=== PATIENT | female | born 1985 | race Caucasian/White ===

== ENCOUNTER 2017-07-27 22:18 | Observation (INO) | payer BC ==
[~2017-07-27 22:18] MED LIST: ISOVUE-370 76%-LOCM 1 ML ONE
[2017-07-27 23:12] LABS: #Basophils 0.1 thou/uL (0.0-0.2); #Lymphocytes 2.3 thou/uL (1.20-3.40); #Monocytes 0.6 thou/uL (0.11-0.59); #Neutrophils 2.7 thou/uL (1.40-6.50); %Basophils 1.4 % (0.0-1.0); %Eosinophils 0.6 % (0.0-10.0); %Lymphocytes 40.7 % (21.0-51.0); %Monocytes 10.1 % (0.0-10.0); Hematocrit 36.8 % (36.0-47.0); Mean Platelet Volume 7.2 fL (7.4-10.4); Red Blood Cell (RBC) Count 3.73 mill/uL (4.20-5.40); White Blood Cell (WBC) Count 5.7 thou/uL (4.8-10.8)
[2017-07-27 23:31] LABS: Bilirubin Negative (Negative); Blood, Urine Negative (Negative); Glucose, Urine (Dipstick) Negative (Negative); Ketone, Urine Negative (Negative); Nitrite Negative (Negative); Protein, Urine (Dipstick) Negative (Neg-Trace); Urobilinogen 0.2 mg/dL (0.2-1.0)
[2017-07-27 23:34] LABS: ALT (SGPT) 17 U/L (8-55); AST (SGOT) 28 U/L (5-34); Alkaline Phosphatase 47 U/L (40-150); Anion Gap 12 mmol/L (10-20); BUN (Urea Nitrogen) 6 mg/dL (7.0-18.7); Bilirubin, Total 0.3 mg/dL (0.2-1.2); Calc. Creatinine Clearance 0 mL/min (70-130); Carbon Dioxide 21 mmol/L (22-29); Chloride 107 mmol/L (98-107); Estimated GFR-MDRD 85; Globulin 3.1 g/dL (2.4-3.5); Lipase 103 U/L (8-78); Protein, Total 7.3 g/dL (6.0-8.3)
[2017-07-27] MEDS ORDERED: Morphine 4 MG/ML VIAL ONE (23:42)
[2017-07-27] MEDS ORDERED: Ondansetron HCl/PF 4 MG/2 ML Vial ONE (23:42)
[2017-07-28] MEDS ORDERED: Morphine 4 MG/ML VIAL ONE (00:25)
[2017-07-28] MEDS ORDERED: Mag-Al 1200 mg/1200 mg/30 ML UDCUP ONE (01:11)
[2017-07-28] MEDS ORDERED: Lidocaine Viscous Sol 2% 15 ml UD Cup ONE (01:11)
[2017-07-28] MEDS ORDERED: HYDROcodone/Acetaminophen 5/325 mg Tablet ONE (01:39)
--- NOTE | 2017-07-28 02:35 | PDOC.EVN ---
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 I have suggested she be sent to 3rd floor gynecology for overnight evaluation for "r/o torsion". As she is clinically stable and in no acute distress, I will evaluate her on arrival to the floor. Assessment: 1. Pelvic pain 2. R/O torsion (although venous flow noted on sono) Plan: 1. will observe for now 2. Await formal sono report 3. Consider repeat sono in AM prn
--- NOTE | 2017-07-28 04:05 | PDOC.EVN ---
Event Note - Event Note Event Note: 07/28/2017 @ 0400: Patient still in ER. Poornima, the nurse practitioner, just notified me that the official sono read shows right hydrosalpinx. I have ordered 1 gram rosphin and 1 gram Zmax IV in ED. Awaiting floor arrival.
[2017-07-28] MEDS ORDERED: Ondansetron HCl/PF 4 MG/2 ML Vial ONE (04:15)
[2017-07-28] MEDS ORDERED: Azithromycin 250 MG TAB ONE (04:26)
[2017-07-28] MEDS ORDERED: Ondansetron ODT 4 MG TAB SL PRN (05:05)
[2017-07-28] MEDS ORDERED: Sodium Chloride 0.9% 1,000 ML IV SCH (05:05)
[2017-07-28] MEDS ORDERED: Ondansetron HCl/PF 4 MG/2 ML Vial IVP PRN (05:05)
[2017-07-28] MEDS ORDERED: Acetaminophen/Codeine 30-300mg Tablet PO PRN (05:06)
[2017-07-28] MEDS ORDERED: Ibuprofen 800 MG TAB PO PRN (05:08)
--- NOTE | 2017-07-28 05:36 | PDOC.EVN ---
Event Note - Event Note Event Note: 07/28/17 @ 0530: Room 335. HISTORY AND PHYSICAL CC: pelvic pain HPI: 31 yo with known HX of pelvic pain and known HX of hydrosalpinx on right now arrives to 3rd floor for observation. She has a HX of adenomyosis and had a laparoscopic hysterectomy at the [facility] in the past. She also has a CS HX from 2006. In ED, sono and CT done with official reports pending. Venous flow seen to the right ovary, right hydrosalpix noted. Allergies: NONE meds: Wellbutrin, Concerta, Topamax for migrain, Loestrin (for "ovarian cysts") PHYSICAL: 141/72, pulse 50, temp 97.9 NAD Patient sitting up in bed Non-surgical abdomen Pelvic: deferred Lab: CBC with WBC 5, HCT and PLATLETS normal GC/Chl pending. Meds given in ER: Rocephin/Zmax prior to prior HX pof hydrosalpix being known ( chronic problem) Assessment: 31 yo with prior hysterectomy, known hydrosalpinx, with pelvic pain (chronic). Right ovary with venous flow. Plan: 1. Continue observation for now 2. Anticipate later discharge this AM as no evidence acute abdomen, and chronic HX of pain 3. Clears for now.
[2017-07-28 07:23] VITALS: BMI 26.5
--- NOTE | 2017-07-28 09:51 | CT ---
PRELIMINARY REPORT/[facility]/EMERGENCY AFTER HOURS PROCEDURE: EXAM: CT Abdomen and Pelvis With Intravenous Contrast EXAM DATE/TIME: 07/28/2017 12:32 AM CLINICAL HISTORY: 31 years old, female; Pain; Abdominal pain; Generalized; Patient HX: Abd pain TECHNIQUE: Axial computed tomography images of the abdomen and pelvis with intravenous contrast. Coronal reformatted images were created and reviewed. CONTRAST: 100 mL of ISOVUE administered intravenously. COMPARISON: No relevant prior studies available. FINDINGS: Lower thorax: No acute findings. ABDOMEN: Liver: Unremarkable. No mass. Gallbladder and bile ducts: Unremarkable. No calcified stones. No ductal dilation. Pancreas: Unremarkable. No mass. No ductal dilation. Spleen: Unremarkable. No splenomegaly. Adrenals: Unremarkable. No mass. Kidneys and ureters: There is a simple cyst in the right kidney. No hydronephrosis. Stomach and bowel: No mass or wall thickening. No obstruction. Appendix: A normal appendix is identified. PELVIS: Bladder: Unremarkable. No mass. Reproductive: The patient is status post hysterectomy. No adenexal masses are seen. ABDOMEN and PELVIS: Intraperitoneal space: There is a moderate amount of free fluid present. No free air. Bones/joints: No acute fracture. No dislocation. Soft tissues: Unremarkable. Vasculature: Unremarkable. No abdominal aortic aneurysm. Lymph nodes: Unremarkable. No enlarged lymph nodes. IMPRESSION: No acute findings. Thank you for allowing us to participate in the care of your patient. Dictated and Authenticated by: Angela Guardado MD 07/28/2017 12:46 AM Central Time ([place] & [place]) FINAL REPORT CT ABDOMEN AND PELVIS WITH CONTRAST: There is free fluid in the deep pelvis in the region of cul-de-sac. Appendix is normal. No other ab normality or acute process seen. I am in agreement with the preliminary report. POS: [facility]
--- NOTE | 2017-07-28 09:53 | ULT ---
PRELIMINARY REPORT/[facility]/EMERGENCY AFTER HOURS PROCEDURE: EXAM: US Pelvis Complete, Transabdominal US Pelvis, Transvaginal US Duplex Arterial/Venous of the Pelvis, Complete CLINICAL HISTORY: 31 years old, female; Pain and signs and symptoms; Constipation and other: N/v; Slow transit; Pelvic pain; Prior surgery; Surgery date: 6+ months; Surgery type: Partial hysterectomy, pt still has both o varies TECHNIQUE: Real-time transabdominal and transvaginal pelvic ultrasound (complete) with image documentation. Transvaginal imaging was used for better evaluation of the endometrium and adnexa. Real-time duplex ultrasound scan of the arterial and venous flow of the pelvis with color Doppler mendez w and spectral waveform analysis was also performed for evaluation of pelvic and ovarian blood flow a nd to rule out torsion. COMPARISON: No relevant prior studies available. FINDINGS: Uterus/cervix: Surgically absent. Right ovary: Enlarged hyperechoic right ovary with peripheral small probable follicles. There is veno us flow in the right ovary, however no arterial flow identified. Left ovary: No acute findings. No mass. Normal blood flow. No evidence of torsion. Dominant follicle. Free fluid: Moderate. Other findings: Dilated tubular/cystic anechoic structure adjacent and inferior to the right ovary th at may represent hydrosalpinx. IMPRESSION: Enlarged hyperechoic right ovary and absent arterial flow; recommend clinical correlation for right o varian torsion and gynecology consult. Moderate free fluid. Dilated tubular/cystic structure that may represent hydrosalpinx. THIS REPORT CONTAINS FINDINGS THAT MAY BE CRITICAL TO PATIENT CARE. The findings were verbally communicated via telephone conference with Poornima Gudino at 2:34 AM [employer] on 07/28/2017. The findings were acknowledged and understood. Thank you for allowing us to participate in the care of your patient. Dictated and Authenticated by: Raghavendra Cortez MD 07/28/2017 2:46 AM Central Time ([place] & [place]) FINAL REPORT PELVIC ULTRASOUND: Transabdominal and endovaginal ultrasound performed. Color Doppler with spectral analysis performed. The patient is post hysterectomy. FINDINGS/IMPRESSION: The right ovary is mildly enlarged and color Doppler with spectral analysis shows no significant clau rial flow. Venous flow is identified. Ovarian torsion is not excluded. Moderate amount of free flu id. A dilated tubular structure may represent hydrosalpinx. I am in agreement with the preliminary report. POS: [facility]
[2017-07-28 11:44] VITALS: BP 143/85; TEMP 98.2
--- NOTE | 2017-08-30 11:50 | EKG ---
Test Reason : Blood Pressure : / mmHG Vent. Rate : 061 BPM Atrial Rate : 061 BPM P-R Int : 150 ms QRS Dur : 080 ms QT Int : 424 ms P-R-T Axes : 061 034 060 degrees QTc Int : 426 ms Normal sinus rhythm with sinus arrhythmia Normal ECG Confirmed by MAGNOLIA DOUGLAS, GOLDEN ([id number]), television news video editor BECCA ROBLES ([id number]) on 08/30/2017 11:50:51 AM Referred By: Confirmed By:GOLDEN MERIDA MD
== END 2017-07-28 11:30 | disposition home or self-care (01) ==
LOC: ERS 22:18 → 3SW 07-28 03:07
PROVIDERS: ADMIT Obstetrics & Gynecology; ATTEND Obstetrics & Gynecology
DX: N70.11 Chronic salpingitis (principal); Z79.899 Other long term (current) drug therapy; Z90.710 Acquired absence of both cervix and uterus; Z98.891 History of uterine scar from previous surgery
CPT/HCPCS: 74177; 76856; 80053; 81003; 81025; 83690; 85025; 86140; 87480; 87491; 87510; 87591; 87660; 93005; 96361; 96374; 96375; 96376; A4353; G0378; J2270; J2405

== ENCOUNTER 2017-08-19 16:16 | Observation (INO) | payer BC ==
[2017-08-19 16:46] LABS: #Lymphocytes 1.8 thou/uL (1.20-3.40); #Monocytes 0.3 thou/uL (0.11-0.59); #Neutrophils 2.9 thou/uL (1.40-6.50); %Basophils 0.2 % (0.0-1.0); %Eosinophils 0.5 % (0.0-10.0); %Lymphocytes 35.6 % (21.0-51.0); %Monocytes 6.7 % (0.0-10.0); Hematocrit 42.2 % (36.0-47.0); Red Blood Cell (RBC) Count 4.27 mill/uL (4.20-5.40)
[2017-08-19 16:53] LABS: Acetaminophen Less than 6.0 mcg/mL (10.0-30.0); CK (CPK) 71 U/L (29-168); Salicylate Less than 8.0 mg/dL (15.0-30.0)
[2017-08-19 16:58] LABS: Troponin I Less than 0.010 ng/mL (< 0.028)
[2017-08-19 17:04] LABS: ALT (SGPT) 18 U/L (8-55); AST (SGOT) 19 U/L (5-34); Alkaline Phosphatase 60 U/L (40-150); Anion Gap 14 mmol/L (10-20); BUN (Urea Nitrogen) 7 mg/dL (7.0-18.7); Bilirubin, Total 0.7 mg/dL (0.2-1.2); Calc. Creatinine Clearance 0 mL/min (70-130); Calcium 9.8 mg/dL (7.8-10.44); Carbon Dioxide 23 mmol/L (22-29); Chloride 106 mmol/L (98-107); Estimated GFR-MDRD 81; Globulin 3.1 g/dL (2.4-3.5); Lipase 46 U/L (8-78); Protein, Total 7.9 g/dL (6.0-8.3)
--- NOTE | 2017-08-19 17:07 | CT ---
CT BRAIN 08/19/17 HISTORY: Altered mental status. Slurred speech. Noncontrast contrast enhanced CT images of the brain is obtained. Noncontrast enhanced CT images of the brain is obtained. The brain is unremarkable. No evidence of in tracranial masses, hemorrhages, strokes or contusions seen. Ventricles are of normal size. IMPRESSION: Unremarkable CT brain. POS: [facility]
--- NOTE | 2017-08-19 17:12 | RAD ---
CHEST ONE VIEW 08/19/17 HISTORY: Altered mental status. COMPARISON: None. FINDINGS: Lungs are clear. No pneumothorax or effusion. The cardiac silhouette and mediastinal contours are wit hin normal limits. No acute osseous abnormality. IMPRESSION: No acute intrathoracic abnormality. POS: [facility]
[2017-08-19 17:30] LABS: Bilirubin Negative (Negative); Blood, Urine Negative (Negative); Glucose, Urine (Dipstick) Negative (Negative); Ketone, Urine Negative (Negative); Nitrite Negative (Negative); Protein, Urine (Dipstick) Negative (Neg-Trace); Urobilinogen 0.2 mg/dL (0.2-1.0)
[2017-08-19 17:40] LABS: Amphetamine Not Detected (NotDetected); Methadone Not Detected (NotDetected); Methamphetamine Not Detected (NotDetected)
--- NOTE | 2017-08-19 19:00 | CT ---
CTA NECK WITH 3D VOLUME RENDERIN08/19/17 CLINICAL HISTORY: 31-year-old female with right sided facial droop. Rule out dissection. FINDINGS: Bilateral codominant vertebral arteries are patent, arising from the respective subclavian artery. Bi lateral common and cervical internal carotid arteries are patent. Limited visualization of left subcl nima artery due to high density streak artifact from adjacent contrast. Right subclavian artery is p atent. There is added density to the anterior mediastinum, where visualized, which statistically woul d reflect residual thymic tissue although is incompletely assessed. IMPRESSION: No acute arterial pathology of the neck identified. Incidental note of small hypodensities of the thyroid gland, notably left thyroid lobe. Recommend ded icated thyroid ultrasound to further characterize. Code T
[2017-08-19] MEDS ORDERED: Ondansetron HCl/PF 4 MG/2 ML Vial IVP PRN (21:39)
[2017-08-19] MEDS ORDERED: Acetaminophen 325 MG TAB PO PRN (21:39)
[2017-08-19] MEDS ORDERED: Ondansetron ODT 4 MG TAB SL PRN (21:39)
[2017-08-19 22:23] VITALS: BMI 25.1
[2017-08-19] MEDS: Sodium Chloride 0.9% 1,000 ML IV SCH (22:41)
[2017-08-20] MEDS ORDERED: Ketorolac Tromethamine 30 MG/ML VIAL IVP SCH (00:45)
[2017-08-20] MEDS ORDERED: Metoclopramide HCl 10 MG/2 ML VIAL IVP SCH (00:45)
--- NOTE | 2017-08-20 02:02 | HP-2 ---
CODE STATUS: FULL. PRIMARY CARE PHYSICIAN: [facility]. ATTENDING PHYSICIAN: Rhett Mathis MD PGY-1 DOCTOR: Adeline Arthur DO CHIEF COMPLAINT: Paresthesias. HISTORY OF PRESENT ILLNESS: This is a 31-year-old female with past medical history of migraine headaches, ADHD, depression, and anxiety that presents with 3-day history of intermittent paresthesias. Patient states that she first noted them on the right side of her face. She describes them as a tingling sensation. The episodes have been intermittent and resolve spontaneously. Patient states that the numbness and tingling has since progressed to include bilateral upper and lower extremities. Associated symptoms include a right- sided headache that is worse with leaning forward. Patient does have a history of migraines. She ran out of her medications for a few days and just recently started taking them again 4 days ago. She was also diagnosed with a sinus infection within the last week and prescribed antibiotic and steroids. She states that she took the antibiotic, but did not get around to taking the steroids. She does still feel some pressure on the right side of her face. The patient was given aspirin 81 mg in the emergency department. PAST MEDICAL HISTORY: 1. Migraines with aura. 2. Attention deficit hyperactivity disorder. 3. Depression. 4. Adjustment disorder with anxiety. 5. Maxillary sinusitis. ALLERGIES: No known drug allergies. PAST SURGICAL HISTORY: 1. Hysterectomy in 2012. 2. in 2006. 3. Oophorectomy on the right for ovarian torsion. MEDICATIONS: 1. Methylphenidate extended release 54 mg p.o. daily. 2. Bupropion extended release 300 mg daily. 3. Topiramate 50 mg daily as needed for migraines. 4. Prednisone 20 mg oral tablet 2 tablets daily for 5 days; patient did not take this medication. FAMILY HISTORY: Patient states that she has a family history of strokes and diabetes mellitus. SOCIAL HISTORY: Patient did smoke two cigarettes per day for 4 years, but states that she quit 2-3 years ago. She endorses occasional alcohol use and marijuana use. REVIEW OF SYSTEMS: A 12-point review of systems was performed, all were negative except as listed in the HPI and as indicated below. Patient endorses nasal congestion, rhinorrhea for the last couple of weeks. She also endorses some weakness and anxiety associated with current symptoms. PHYSICAL EXAMINATION: VITAL SIGNS: Blood pressure 133/62, pulse is 70, respiratory rate 22, T-max 98.1, pulse ox 99% on room air, current weight 64 kilograms. GENERAL: Patient is alert and oriented x3, no acute distress. Well-developed, well-nourished, appropriately interactive. EYES: Pupils equally round, reactive to light and accommodation. Extraocular muscles intact. Conjunctivae within normal limits. ENT: Tympanic membranes brown without bulging or erythema. Nasal mucosa within normal limits. Oropharynx within normal limits. NECK: Supple without lymphadenopathy, thyromegaly, or bruits. CARDIOVASCULAR: Regular rate and rhythm. No murmurs or gallops. Radial pulses 2+, pedal pulses 2+. RESPIRATORY: Normal respiratory effort, no retractions. Lungs are clear to auscultation bilaterally. SKIN: Warm and dry without cyanosis. There are some scars on the abdomen from laparoscopic surgery. EXTREMITIES: No clubbing, cyanosis, or edema. MUSCULOSKELETAL: Structure within normal limits. Tone within normal limits. Muscle strength 5/5 in upper and lower extremities bilaterally. There is full range of motion throughout. NEUROLOGIC: No focal deficits. Sensation within normal limit. Cranial nerves II-XII intact. GCS 15. No evidence of asymmetry. PSYCHIATRIC: Appropriate. LABORATORY FINDINGS: 1. CBC reveals white blood cell of 5.0, hemoglobin 14.2, hematocrit 42.2, platelet 236. 2. CMP reveals sodium 139, potassium 3.5, chloride 106, bicarb 23, BUN 7, creatinine 0.83, glucose 100, calcium 9.8. Total protein 7.9, albumin 4.8, total bilirubin 0.7, AST 19, ALT 18, alkaline phosphatase 60. 3. CK 71. 4. CK-MB 0.6, troponin less than 0.010. 5. Lipase 46. 6. TSH 0.5781. 7. Beta hCG negative. 8. Urinalysis negative. 9. UDS positive for opiates and marijuana. 10. Chest x-ray shows no acute findings. 11. Brain CT is unremarkable. 12. CTA of neck shows no acute arterial pathology of the neck. ASSESSMENT AND PLAN: This is a 31-year-old female with past medical history of migraines and anxiety, who presents with paresthesias and headache. 1. Complex migraine versus anxiety. There is initial concern for transient ischemic attack; however, symptoms are not consistent with transient ischemic attack presentation. CT of the brain was negative as well as CTA of the neck. Patient was off migraine medications for a few days and has just restarted taking her topiramate. This is likely a complex migraine. We will continue to monitor patient and do q.4 hour neuro checks. She will likely be stable for discharge home in the morning. We will continue her home migraine medications and also add Reglan and Toradol IV for treatment of her migraine. Of note, patient's ABCD2 score was 0. Additionally, there is a potential that paraesthesias are a side effect of topiramate. 2. Maxillary sinusitis. Patient was initially treated with antibiotics. Recommend nasal irrigation and decongestants to assist with clearing her sinus congestion. 3. Attention deficit hyperactivity disorder. We will hold the home medication at this time. 4. Depression. We will continue home medication. 5. Deep venous thrombosis prophylaxis, SCDs. DISPOSITION AND LENGTH OF HOSPITAL STAYL: One day. Symptomatic medications will be provided. History and physical exam as well as management discussed with Dr. Rhett Mathis. [facility]
[2017-08-20] MEDS: Sodium Chloride 0.9% 1,000 ML IV SCH (05:52)
--- NOTE | 2017-08-20 06:46 | PDOC.FM ---
- Subjective Subjective: Patient reports improvement in her numbness and tingling this morning. She reports a headache for about 4 days, two days ago she went to the [facility] and was diagnosed with a tension headaches after a reassuring ct scan, per patient. She does report being out of her topamax for at least 4 days and restarted it a couple days ago. The numbness in face is resolved. She does still report reduced , howevr equal sensation in BUE. BLE sensation is back to normal. - Objective MAR Reviewed: Yes Vital Signs & Weight: Vital Signs (12 hours) Temp Pulse Resp BP BP Pulse Ox 08/20/17 04:00 97.5 F L 67 16 100/55 L 100 08/20/17 00:31 98.1 F 76 16 138/70 100 08/19/17 21:15 98.1 F 69 18 08/19/17 21:10 98.1 F 69 18 154/93 H 98 Weight Weight 64.41 kg I&O: 08/18/17 08/19/17 08/20/17 06:59 06:59 06:59 Intake Total 500 Balance 500 Result Diagrams: 08/19/17 16:30 08/19/17 16:30 <Subha Davey A - Last Filed: 08/20/17 06:43> - Objective Vital Signs & Weight: Vital Signs (12 hours) Temp Pulse Resp BP Pulse Ox 08/20/17 08:00 98 F 63 16 08/20/17 07:15 98 F 63 16 128/73 99 08/20/17 04:00 97.5 F L 67 16 100/55 L 100 08/20/17 00:31 98.1 F 76 16 138/70 100 Weight Weight 64.41 kg I&O: 08/19/17 08/20/17 08/21/17 06:59 06:59 06:59 Intake Total 500 Balance 500 Result Diagrams: 08/19/17 16:30 08/19/17 16:30 <Rhett Mathis - Last Filed: 08/20/17 10:34> Phys Exam - Physical Examination Constitutional: NAD HEENT: PERRLA, moist MMs Respiratory: no wheezing, no rales, no rhonchi, clear to auscultation bilateral Cardiovascular: RRR, no significant murmur Musculoskeletal: no edema 5/5 strength in BUE/BLE Neurological: non-focal reduced but equal sensation in BUE, equal sensation in BLE. cranial nerves 2-12 intact. Psychiatric: normal affect Deviation from normal: Poor eye contact during interaction, patient primarily looks down <Subha Davey - Last Filed: 08/20/17 06:43> Dx/Plan (1) Migraine aura, persistent Code(s): G43.509 - PERST MIGRN AURA W/O CEREB INFRC, NOT NTRCT, W/O STAT MIGR Status: Acute Plan: symptoms not c/w CVA. CT brain and CTA neck wnl. Patient back to baseline except a sensory component. Suspect this is migraine with sensory and motor aura. Motor resolved in ER and sensory persistent. Consideration for idiopathic intracranial HTN made however without visual component, less likely. Will likely dc later today and recommend outpatient neuro f/u. (2) Anxiety and depression Code(s): F41.8 - OTHER SPECIFIED ANXIETY DISORDERS Status: Acute Plan: cont home meds. (3) Incidentaloma of thyroid gland Code(s): D49.7 - NEOPLM OF UNSP BEHAV OF ENDO GLANDS AND OTH PRT NERVOUS SYS Status: Acute Plan: Recommend follow up with PCP for US of thyroid. TSH wnl. <Subha Davey - Last Filed: 08/20/17 06:43> Attending Addendum - Attending Addendum I personally evaluated the patient and discussed the management with Dr. Davey. I agree with the History, Examination, Assessment and Plan documented above with any addition or exceptions noted below. Patient doing well this morning. Paresthesias are improved. Her imaging is negative and Neurology feels this is likely related to migraine and/or topamax effect. Patient stable for discharge. <Rhett Mathis - Last Filed: 08/20/17 10:34>
--- NOTE | 2017-08-20 07:26 | PDOC.EVN ---
Attending Addendum - Attending Addendum I personally evaluated the patient and discussed the management with Dr. Arthur. I agree with the History, Examination, Assessment and Plan documented in her H& P with any addition or exceptions noted below. Patient with several days of paresthesias admitted to obs due to initial concern for TIA. Her symptoms are less consistent with that, and more consistent with either migraine type pain or possibly medication effect from restarting topiramate. Patient will be monitored overnight and symptomatic meds provided. Her imaging has been reviewed and is negative. No indication for consultation of neurology at this time or further interventions. Will ask that she refrain from marijuana use.
[2017-08-20] MEDS ORDERED: Topiramate 25 MG TAB PO SCH (09:00)
[2017-08-20] MEDS ORDERED: Aspirin 325 MG TAB PO SCH (09:00)
[2017-08-20] MEDS ORDERED: NORETHINDRONE E ESTRADIOL IRON PO SCH (09:00)
--- NOTE | 2017-08-20 10:47 | CON ---
DATE OF CONSULTATION: 08/20/2017 IMPRESSION: Probable migraine. PLAN: The patient can be discharged home. HISTORY: Ms. Phipps is a 31-year-old white female, who presents with a 1 week history of some persist ent occipital headache. The headache would radiate forward typically when she was more active and st arted experiencing some tingling and numbness of her face and extremities. She had a waxing and hany ng course of intensity. She was using ibuprofen and some codeine to treat the pain. She decided to come to the hospital last night for evaluation since the headache intensified to severity that she miramontes d never experienced before. She had a CT of the brain with CTA, which were both negative. She was a bit hypertensive initially, but this has since settled down. She has been afebrile. There is no na usea or vomiting, fevers or chills associated with this. She has had some past headaches that were m igraine in quality, but nothing that was quite like this. PAST MEDICAL HISTORY: Otherwise, negative. ALLERGIES: None. SOCIAL HISTORY: Positive for cannabis use. FAMILY HISTORY: Noncontributory. REVIEW OF SYSTEMS: Otherwise, negative. PHYSICAL EXAMINATION: VITAL SIGNS: Blood pressure 120/73, pulse 63, temperature 98. HEENT: Unremarkable. NEUROLOGIC: She is alert and appropriate. Her speech is fluent and clear. Exam is nonfocal. She r eports some subjective alteration of sensation of both upper extremities to light touch. She can wal k independently. LABORATORY STUDIES: Unremarkable CBC, serum chemistry, urinalysis, and toxicology was positive for o piates and cannabis. SUMMARY: This is a young woman, who presents with 1 week history of headaches and paresthesias with a negative workup thus far. I suspect this is all migraine in origin and I will be happy to follow u p with her as an outpatient.
[2017-08-20 12:04] VITALS: BP 121/84; TEMP 98.3
--- NOTE | 2017-08-23 12:53 | DIS-2 ---
DATE OF ADMISSION: 08/19/2017 DATE OF DISCHARGE: 08/20/2017 ADMITTING ATTENDING: Rhett Mathis MD DISCHARGE ATTENDING: Rhett Mathis MD CONSULTS: Made to Dr. Rowan of Neurology. PRIMARY DIAGNOSES: 1. Complex migraine. 2. Medication side effect. SECONDARY DIAGNOSES: 1. Attention deficit hyperactivity disorder. 2. Depression. 3. Adjustment disorder with anxiety. 4. Maxillary sinusitis. DISCHARGE MEDICATIONS: 1. Loestrin 1 tab p.o. daily. 2. Concerta 54 mg p.o. q.a.m. 3. Topiramate 50 mg p.o. daily. 4. Wellbutrin XL 300 mg p.o. q.a.m. HISTORY OF PRESENT ILLNESS AND HOSPITAL COURSE: This is a 31-year-old female with past medical histo ry of migraine, who presented to the ER with a complaint of numbness in her face as well as some ques tionable facial droop, not evidenced by the primary team as well as tingling in upper and lower extre mities. The patient did note having been off of her topiramate, which she takes daily for about 4 da ys and then restarted it, which also accompanied the onset of the symptoms. The patient did note hav ing a headache at that time as well. The patient did have a CT scan of the brain, which was negative as well as a CT angiogram of the head and neck, which was negative. Only finding on CT angiogram wa s a incidental note of a small hypodensity of the thyroid gland, notably the left thyroid lobe and it was recommended to have a dedicated thyroid ultrasound at a later time. A consult was made from the ER to Dr. Otto Rowan, who saw the patient and agree with symptoms likely consistent with the migra ine. It was also thought that it will be secondary to restarting her Topamax and having paresthesia secondary to this medication side effect. Patient's condition improved and she was discharged from [facility] in stable condition. DISPOSITION: Stable. DISCHARGE INSTRUCTIONS: 1. Location: Home. 2. Activity: As tolerated. 3. Diet: Regular. 4. Followup: Follow up with Dr. Rowan, her neurologist twice in the next 2 weeks. Follow up with primary care physician for a thyroid ultrasound as well.
== END 2017-08-20 12:40 | disposition home or self-care (01) ==
LOC: ERS 16:16 → 2SE 19:48 → INTOOBSV 19:48
PROVIDERS: ADMIT Student in an Organized Health Care Education/Training Program; ATTEND Student in an Organized Health Care Education/Training Program
DX: G43.809 Other migraine, not intractable, without status migrainosus (principal); R20.2 Paresthesia of skin; F90.9 Attention-deficit hyperactivity disorder, unspecified type; F32.9 Major depressive disorder, single episode, unspecified; F41.9 Anxiety disorder, unspecified; F17.210 Nicotine dependence, cigarettes, uncomplicated; F12.90 Cannabis use, unspecified, uncomplicated; Z79.899 Other long term (current) drug therapy; Z90.710 Acquired absence of both cervix and uterus; Z90.721 Acquired absence of ovaries, unilateral
CPT/HCPCS: 36416; 70450; 70498; 71010; 80053; 80306; 80307; 81003; 82553; 83690; 84443; 84484; 84703; 85025; 93005; 94760; 96374; 96375; G0378; J1885; J2765

== ENCOUNTER 2017-09-09 09:56 | Outpatient (CLI) | payer OTHER ==
--- NOTE | 2017-09-09 12:59 | MRI ---
BRAIN MRI WITH AND WITHOUT CONTRAST: DATE: 09/09/17. COMPARISON: None. HISTORY: Headaches, loss of balance, numbness, possible CSF leak. TECHNIQUE: Multiplanar, multisequence MR imaging of the brain is provided with and without contrast. FINDINGS: The diffusion weighted imaging demonstrates no evidence for acute infarction. The axial gradient echo imaging demonstrates no evidence for intracranial hemorrhage. There is no midline shift, mass effect, or ventricular enlargement. There are a few scattered foci of increased T2 and FLAIR signal scattered within the subcortical, per iventricular, and deep white matter, nonspecific. No discrete abnormal T2 or FLAIR signal is seen wi thin the brainstem or posterior fossa. The postcontrast imaging demonstrates no abnormal enhancement within the brain parenchyma. There is mild polypoid mucosal thickening within he maxillary sinus on the right. Imaged paranasal s inuses/mastoid air cells are otherwise unremarkable. IMPRESSION: There are scattered subcentimeter foci of increased T2 and FLAIR signal within the white matter, nons pecific, somewhat prominent for a patient of this age. This is nonspecific and can be seen in the se tting of small-vessel disease, Lyme disease, vasculitis, and demyelinating disease in the proper clin ical setting. Clinical correlation is essential. POS: [facility]
== END 2017-09-09 09:57 | disposition home or self-care (01) ==
LOC: MRI 09:56
PROVIDERS: ATTEND Psychiatry & Neurology Neurology
DX: R51 Headache (principal)
CPT/HCPCS: 70553

== ENCOUNTER 2017-10-07 09:48 | Day surgery (SDC) | payer OTHER ==
[2017-10-07 10:38] VITALS: BMI 26.7
[2017-10-07 10:41] VITALS: BP 105/55; TEMP 98.1
--- NOTE | 2017-10-07 13:58 | CT ---
CT LUMBAR SPINE WITH CONTRAST CT LUMBAR MYELOGRAM: CLINICAL HISTORY: Migraine headaches, low pressure headaches with concern for CSF leak. FINDINGS: The contrast-opacified thecal sac is unremarkable. There is no evidence of abnormal extension of con trast beyond the expected confines of the thecal sac to confirm CSF leak. The nerve roots of cauda e quina and the tip of conus medullaris are unremarkable. There is no evidence for significant extrins ic mass effect upon the central canal or neural foramina. Vertebral body heights and alignment of th e lumbar spine are maintained. There is mild Schmorl's node formation at the low thoracic and upper lumbar region. 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 IMPRESSION: No CT myelographic evidence for cerebrospinal fluid leak within the lumbar spine vertebral canal. POS: MICHEAL
--- NOTE | 2017-10-07 14:14 | CT ---
THORACIC SPINE CT WITH CONTRAST THORACIC SPINE CT MYELOGRAM: Date: 10/07/17 CLINICAL HISTORY: Migraine headaches. Low pressure headaches with clinical concern for CSF leak. FINDINGS: The contrast opacified thecal sac of the thoracic spine vertebral column is unremarkable. There is no evidence for abnormal leakage of radiopaque contrast beyond the expected confines of the thecal sac. The imaged thoracic spinal cord demonstrates appropriate caliber and contour. There is no significant extrinsic mass effect upon the central canal and neural foramina. Mild end pl ate degenerative changes and mild osteophytosis of the thoracic spine present. No compression fractur e or subluxation. IMPRESSION: There is no CT myelographic evidence for CSF leak within the thoracic spine vertebral column. POS: MICHEAL
--- NOTE | 2017-10-07 14:46 | RAD ---
CERVICAL SPINE MYELOGRAM THORACIC SPINE MYELOGRAM LUMBAR SPINE MYELOGRAM: INDICATION: Migraine headaches, low pressure headaches with concern for CSF leak. PROCEDURE: After informed consent had been obtained, the patient was escorted to the interventional suite and pl aced on the procedural table. Special Makeup Fx Artist Instructor imaging was performed. The patient was placed into a prone posi tion. Skin on the low back was then prepped and draped in the standard sterile fashion and topical a nd regional soft tissue anesthesia was achieved with 1% lidocaine and sodium bicarbonate. L3 right in terlaminar approach was selected, and a 22 gauge needle was uneventfully advanced into the thecal sac with clear color CSF. Subsequently, 9 mL Isovue M300 was instilled into the thecal sac under real t sherwin fluoroscopy. Appropriate opacification of thecal sac demonstrated with imaging stored for [facility] hospitalion. The needle was then removed from the patient. The patient tolerated the procedure well and was then transferred to CT to undergo subsequent myelogram. Reference separate report for full josiai ls. Fluoro Data: 0.3 minutes intermittent fluoroscopy. 24 mGy*cm^2. IMPRESSION: Technically successful cervical, thoracic, and lumbar spine myelogram as detailed above. POS: MICHEAL
--- NOTE | 2017-10-07 14:51 | CT ---
CT CERVICAL SPINE WITH CONTRAST CT CERVICAL MYELOGRAM: Date: 10/07/17 INDICATION: Migraine headaches, low pressure headaches with concern for CSF leak. FINDINGS: The thecal sac is contrast opacified and there is no evidence of abnormal leakage of contrast to conf irm CSF leak. There is reversal of the normal cervical curvature due to patient positioning. No signi ficant extrinsic mass effect. There are minimal disc bulges that efface the ventral thecal sac. No si gnificant foraminal compromise. Slight ventral cord flattening of the right hemicord at the C3-4 leve l related to uncinate process hypertrophy. IMPRESSION: 1. There is no CT myelographic evidence to confirm CSF leak within the cervical spine vertebral colu mn. 2. There are minimal degenerative changes effacing the ventral aspect of the contents of the vertebr al canal. POS: MICHEAL
== END 2017-10-07 12:59 | disposition home or self-care (01) ==
LOC: RAD 09:48
PROVIDERS: ATTEND Psychiatry & Neurology Neurology
PROC: B01B1ZZ Fluoroscopy of Spinal Cord using Low Osmolar Contrast (ICD-10-PCS; principal; 2017-10-07)
DX: G43.109 Migraine with aura, not intractable, without status migrainosus (principal); F90.9 Attention-deficit hyperactivity disorder, unspecified type; F32.9 Major depressive disorder, single episode, unspecified; F43.22 Adjustment disorder with anxiety; F12.90 Cannabis use, unspecified, uncomplicated; Z79.899 Other long term (current) drug therapy; Z90.710 Acquired absence of both cervix and uterus; Z90.721 Acquired absence of ovaries, unilateral; Z98.891 History of uterine scar from previous surgery; Z72.89 Other problems related to lifestyle; Z87.891 Personal history of nicotine dependence
CPT/HCPCS: 62305; 72126; 72129; 72132

== ENCOUNTER 2024-08-17 16:50 | Emergency (ER) | payer BC, OTHER ==
[2024-08-17] MEDS ORDERED: Lidocaine 1% PF 5 ML VIAL ONE (17:46)
[2024-08-17] MEDS ORDERED: Boostrix 0.5 ML (Tdap) VIAL (>/=7 yrs of age) ONE (17:46)
[2024-08-17] MEDS ORDERED: Bacitracin 1 PK ONE (20:58)
== END 2024-08-17 21:34 | disposition home or self-care (01) ==
LOC: ERS 16:50
DX: S41.152A Open bite of left upper arm, initial encounter (principal); Z23 Encounter for immunization; W54.0XXA Bitten by dog, initial encounter
CPT/HCPCS: 90471; 90715; 96372; J0290

== ENCOUNTER 2024-08-29 13:27 | Emergency (ER) | payer BC | END 2024-08-29 14:18 | disposition home or self-care (01) | LOC: ERS 13:27 | DX: S41.111D Laceration without foreign body of right upper arm, subsequent encounter (principal); W54.0XXD Bitten by dog, subsequent encounter ==